=== PATIENT | male | born 1960 | race Caucasian/White ===

== ENCOUNTER 2020-03-14 10:15 | Emergency (ER) | payer OTHER ==
[~2020-03-14] VITALS: Ht 170.2 cm; Wt 68.0 kg
[2020-03-14 10:16] VITALS: BP 112/95
--- NOTE | 2020-03-14 10:24 | NUR ---
PATIENT AMBULATED TO BED 6.
--- NOTE | 2020-03-14 10:30 | NUR ---
C/O PUNCTURE WOUND TO BOTTOM OF LEFT FOOT AFTER HITTING A PIECE OF METAL WHILE WEED CUTTING X 3 DAYS. PT REPORTS PAIN 7/10 WORSENS WITH AMBULATING. PT STATES DRAINAGE FROM SITE. REDNESS TO TOP OF PTS FOOT POST INCIDENT. +POST TIBIAL PULSE. LAST TDAP APPROX 3 YEARS AGO. PT STATES HE HAS BEEN APPLYING NEOSPORIN AND HYDROGEN PEROXIDE TO SITE. PT ALERT AND AWAKE. VS STABLE. MED HX: DENIES
--- NOTE | 2020-03-14 10:38 | NUR ---
PT REPORTS PREDIABETIC BUT TAKES NO HOME MEDICATIONS BS 360
[2020-03-14] MEDS ORDERED: NACL 0.9% 1,000 ML IV ONE (10:40)
[2020-03-14] MEDS ORDERED: VANCOMYCIN 1,000 MG in DEXTROSE 5% 250 ML IV ONE (10:40)
[2020-03-14] MEDS ORDERED: VANCOMYCIN 1,000 MG VIAL ONE (10:43)
--- NOTE | 2020-03-14 10:50 | NUR ---
IV INSERTED AND LABS DRAWN BEDSIDE
--- NOTE | 2020-03-14 10:54 | NUR ---
PT AMB TO RESTROOM
--- NOTE | 2020-03-14 10:57 | NUR ---
monitoring tech at bedside.
--- NOTE | 2020-03-14 11:00 | NUR ---
BOLUS AND VANCO RUNNING
[2020-03-14 11:10] LABS: BASOPHILS # (AUTO) 0.1 K/uL (0.00-0.22); BASOPHILS % (AUTO) 0.5 % (0.0-2.0); EOSINOPHILS # (AUTO) 0.1 K/uL (0-0.4); EOSINOPHILS % (AUTO) 0.9 % (0.0-4.0); HEMATOCRIT 39.1 % (36-52); HEMOGLOBIN 13.2 g/dL (12.0-18.0); LYMPHOCYTES # (AUTO) 1.9 K/uL (2.0-11.5); LYMPHOCYTES % (AUTO) 14.9 % (20.5-51.1); MEAN CORPUSCULAR HEMOGLOBIN 28 pg (27-31); MEAN CORPUSCULAR HGB CONC 34 g/dL (33-37); MEAN CORPUSCULAR VOLUME 83.5 fL (80-94); MONOCYTES # (AUTO) 0.9 K/uL (0.8-1.0); NEUTROPHILS # (AUTO) 9.5 K/uL (1.8-7.7); NEUTROPHILS % (AUTO) 76.7 % (42.2-75.2); PLATELET COUNT (AUTO) 293 K/uL (140-450); RED BLOOD CELL COUNT(AUTO) 4.68 MIL/uL (4.20-6.10); RED CELL DISTRIBUTION WIDTH 12.6 % (11.6-13.7); WHITE BLOOD COUNT (AUTO) 12.5 K/uL (4.8-10.8)
[2020-03-14 11:21] LABS: ANION GAP 12.3 (8-16); CARBON DIOXIDE 28.7 mmol/L (21-32); CREATININE 1.2 mg/dL (0.6-1.3)
[2020-03-14 11:27] LABS: ALBUMIN 2.9 g/dL (3.4-5.0); TOTAL BILIRUBIN 0.4 mg/dL (0.0-1.0)
[2020-03-14 11:28] LABS: APPEARANCE,URINE CLEAR (CLEAR); BILIRUBIN,URINE NEGATIVE (NEGATIVE); BLOOD, URINE NEGATIVE (NEGATIVE); COLOR,URINE YELLOW (YELLOW); LEUKOCYTE ESTERASE ,URINE NEGATIVE (NEGATIVE); NITRITE, URINE NEGATIVE (NEGATIVE); PH,URINE 6.5 (5.0-9.0); UGLUCOSE 3+ (NEGATIVE)
--- NOTE | 2020-03-14 11:30 | NUR ---
WOUND PHOTOS TAKEN AND PLACED IN PTS CHART
--- NOTE | 2020-03-14 11:31 | NUR ---
Dr. Chang is evaluating the patient at bedside.
[2020-03-14 11:38] LABS: RBC,URINE NONE SEEN /HPF (0-5); WBC,URINE NONE SEEN /HPF (0-5)
--- NOTE | 2020-03-14 11:51 | NUR ---
313 ACCU CHECK, PT INSTRUCTED TO KEEP HIS ARM STRAIGHT SO THAT [facility] BOLUS WILL INFUSE
[2020-03-14 11:52] LABS: PROTHROMBIN TIME 9.7 secs (10.8-13.4)
--- NOTE | 2020-03-14 12:10 | NUR ---
accu check 312
--- NOTE | 2020-03-14 12:18 | NUR ---
verbal order for 5 units regular insulin ivp by dr cabello
[2020-03-14] MEDS ORDERED: INSULIN REGULAR, HUMAN 100 UNIT/ML VIAL IVP ONE (12:20)
--- NOTE | 2020-03-14 12:28 | NUR ---
5 units regular insulin ivp administered
[2020-03-14] MEDS ORDERED: INSULIN REGULAR, HUMAN 100 UNIT/ML VIAL SUBQ ONE (12:35)
--- NOTE | 2020-03-14 13:00 | NUR ---
spoke with dr cabello in regards to the second insulin order. dr cabello states order was a mistake. adonay rn and deniz rn administered second dose of insulin unaware that the second order was a mistake. dr cabello made aware.
--- NOTE | 2020-03-14 13:13 | NUR ---
nadr, pain 01/20
[2020-03-14 13:14] VITALS: BP 134/84
--- NOTE | 2020-03-14 13:14 | NUR ---
[facility] at bedside for transfer to [facility].
--- NOTE | 2020-03-14 13:14 | NUR ---
Patient to be transferred to [facility]. Is being transferred due to insurance and continuation of care. Receiving facility has accepting physician and available space. ER physician has signed transfer form. Patient or responsible libertarian has agreed to transfer and signed form. Patient belongings inventoried and will be sent with patient. Copy of nursing notes, lab reports, EKG, Physicians Orders and X-rays to be sent with patient. Report called to carmen pompa rn at receiving facility. informed [facility] transport in regards to second dose of insulin administration
== END 2020-03-14 13:14 | disposition short-term general hospital (02) ==
LOC: MED 10:15
DX: L03.116 Cellulitis of left lower limb (principal); E11.9 Type 2 diabetes mellitus without complications
CPT/HCPCS: 36415; 73630; 80053; 81001; 83605; 85025; 85610; 85730; 87040; 93005; 96365; 96366; 96372; 96375; 99285; J1815; J3370; J7030; Q0092